=== PATIENT | female | born 1965 | race Caucasian/White ===

== ENCOUNTER → 2016-11-02 | Outpatient (CLI) | payer OTHER ==
--- NOTE | 2016-11-02 10:14 | MA ---
Bilateral Digital Screening Mammography Clinical History: 50-year-old female with no family history of breast cancer who presents for routine annual mammographic screening. Technique: Digital CC and MLO views of each breast were compared with previous studies dated January 25, 2015 October 17, 2013, September 28, 2012, September 11, 2011, November 27, 2009, July 18, 2008, a nd October 06, 2006. This examination was processed by the [employer] computer-aided detection system. Breast Density: Type B (scattered fibroglandular densities). CAD Evaluation: Reviewed. Findings: There is a moderately dense heterogeneous residual fibroglandular pattern which is stable. There is a stable intramammary lymph node in the upper outer left breast, unchanged from the 2006 exa m. There is no focal neodensity or interim architectural change. There are no suspicious clustered mi crocalcifications. Impression: Benign mammography. BI-RADS Category: 2. Recommendation: Routine annual mammographic screening. [facility] will send a result letter to the patient. Negative mammography should not preclude additional work-up of a clinically suspicious finding. The patient's information is entered into a reminder system with a target due date for her next mammo gram.
== END ==
LOC: BMCIMAGING 09:17
DX: Z12.31 Encounter for screening mammogram for malignant neoplasm of breast (principal)
CPT/HCPCS: G0202

== ENCOUNTER → 2017-11-10 | Outpatient (CLI) | payer OTHER | LOC: BMCIMAGING 09:03 | PROVIDERS: ATTEND Physician Assistant Medical | DX: Z12.31 Encounter for screening mammogram for malignant neoplasm of breast (principal) ==